=== PATIENT | male | born 1965 | race Caucasian/White ===

== ENCOUNTER 2017-09-15 20:31 | Inpatient (IN) | payer OTHER ==
[2017-09-15] MEDS ORDERED: NS 500 ML IV ONE (20:43)
--- NOTE | 2017-09-15 20:48 | EDPHY ---
H & P Time Seen by Provider: 09/15/17 20:33 HPI/ROS: CHIEF COMPLAINT: Abdominal pain HISTORY OF PRESENT ILLNESS: The patient is a 52-year-old male who presents to the emergency department after having bilateral hernia repair this morning by Dr. Trotter. This was a laparoscopic procedure. Patient states he returned home. He subsequently developed bilateral back pain. This is now moved into his lower abdomen bilaterally. He has had 1 episode of vomiting. No current nausea. His pain is severe. He tried to come to the hospital by private vehicle but collapsed due to the pain. He did not sustain any trauma. He has had no fevers or chills. No previous surgeries. REVIEW OF SYSTEMS: My complete review of systems is negative except as mentioned in the HPI. Past Medical/Surgical History: Past medical history includes epilepsy, back problems Past surgical history: Left shoulder surgery, bilateral hernia repair Social history: The patient does not smoke Smoking Status: Never smoked Physical Exam: Vitals noted GENERAL: Mild acute distress, alert. HEENT: Eyes normal to inspection, normal pharynx, mildly dry mucous membranes. NECK: No thyromegaly, no lymphadenopathy, supple. RESPIRATORY: Clear to auscultation bilaterally, no rales, rhonchi or wheezing. CVS: Regular rate and rhythm, no rubs, murmurs, or gallops. ABDOMEN: Soft, the no significant tenderness to palpation. The patient does have laparoscopic wounds which are clean dry and intact. There is no surrounding erythema. Patient is mildly distended. BACK: Normal to inspection, no CVA tenderness. SKIN: Normal color, no rash, warm, dry. No pallor. EXTREMITIES: No pedal edema, no calf tenderness, no Homans sign or cords, no joint swelling. NEURO/PSYCH: Alert and oriented, normal mood and affect. Constitutional: Initial Vital Signs Temperature (C) 36.6 C 09/15/17 20:35 Heart Rate 101 H 09/15/17 20:35 Respiratory Rate 20 09/15/17 20:35 Blood Pressure 137/82 H 09/15/17 20:35 O2 Sat (%) 92 09/15/17 20:35 O2 Delivery Mode Room Air O2 (L/minute) 2 Allergies/Adverse Reactions: No Known Allergies Allergy (Unverified 09/15/17 20:40) Medical Decision Making - Diagnostics Imaging Results: Imaging Impressions Chest X-Ray 09/15/17 20:43 Impression: Poor respiratory phase without focal pneumonia or pulmonary edema. ADDENDUM: 09/15/172119 Impression: Suspect pneumoperitoneum. Findings and recommendations discussed with Emergency Department physician, DEVYN MACK at 21:19 hour, 09/15/2017. Final report concurs with initial preliminary interpretation. ED Course/Re-evaluation: In the emergency department I met the patient on arrival. An IV was placed. Laboratory studies and chest x-ray were ordered. Patient received fentanyl 150 mcg IV via EMS. He states that did improve his pain. [place] [address]. His chemistry panel is unremarkable. Chest x-ray: Please refer the dictated report. On the lateral view of the chest x-ray the patient appears to have free air under the diaphragm. On recheck the patient describes his pain as 3/10. No respiratory distress. Abdominal exam is unchanged. I discussed the result the patient. I subsequently contacted Dr. Trotter. A CT angiogram of the chest to rule pulmonary embolus as well as CT of the abdomen pelvis were ordered. Patient was given repeat fentanyl [address] chest/abdomen/pelvis: Please refer the dictated report. The patient had multiple abnormal findings. Patient has a right anterior pelvic hematoma that measures 8.8 x 6.8. This is a portion on the bladder. Patient also has fluid/ blood in bilateral hernia locations. There is pneumoperitoneum. There is diffuse air in the abdominal in chest wall. There is pneumomediastinum. There are small bilateral apical pneumothoraces. I discussed the results with the patient. On recheck he had no respiratory distress. I discussed case with Dr. Trotter. Patient will be admitted for observation. Differential Diagnosis: My differential includes but is not limited to small-bowel obstruction, perforation, constipation, free air, postsurgical pain Critical Care Time: The patient required 35 min of critical care time. Patient required frequent rechecks. Patient was noted to have numerous abnormalities on his CT. The patient had bilateral pneumothoraces. However, I do not feel he needs chest tubes at this time. He does have pneumomediastinum as well as pneumoperitoneum. I do not feel he needs acute evaluation of his pelvic hematoma. I discussed these findings with surgery. - Data Points Laboratory Results: Laboratory Results 09/15/17 20:46 09/15/17 20:46 09/15/17 09/15/17 20:46 20:46 WBC 15.11 10^3/uL H 10^3/uL (3.80-9.50) RBC 4.98 10^6/uL 10^6/uL (4.40-6.38) Hgb 14.6 g/dL g/dL (13.7-17.5) Hct 41.9 % % (40.0-51.0) MCV 84.1 fL fL (81.5-99.8) MCH 29.3 pg pg (27.9-34.1) MCHC 34.8 g/dL g/dL (32.4-36.7) RDW 12.3 % % (11.5-15.2) Plt Count 266 10^3/uL 10^3/uL (150-400) MPV 9.7 fL fL (8.7-11.7) Neut % (Auto) 84.4 % H % (39.3-74.2) Lymph % (Auto) 9.3 % L % (15.0-45.0) Barren % (Auto) 5.1 % % (4.5-13.0) Eos % (Auto) 0.1 % L % (0.6-7.6) Baso % (Auto) 0.2 % L % (0.3-1.7) Nucleat RBC Rel Count 0.0 % % (0.0-0.2) Absolute Neuts (auto) 12.76 10^3/uL H 10^3/uL (1.70-6.50) Absolute Lymphs (auto) 1.40 10^3/uL 10^3/uL (1.00-3.00) Absolute Monos (auto) 0.77 10^3/uL 10^3/uL (0.30-0.80) Absolute Eos (auto) 0.01 10^3/uL L 10^3/uL (0.03-0.40) Absolute Basos (auto) 0.03 10^3/uL 10^3/uL (0.02-0.10) Absolute Nucleated RBC 0.00 10^3/uL 10^3/uL (0-0.01) Immature Gran % 0.9 % % (0.0-1.1) Immature Gran # 0.14 10^3/uL H 10^3/uL (0.00-0.10) Sodium 136 mEq/L mEq/L (135-145) Potassium 4.2 mEq/L mEq/L (3.5-5.2) Chloride 101 mEq/L mEq/L (97-110) Carbon Dioxide 22 mEq/l mEq/l (22-31) Anion Gap 13 mEq/L mEq/L (8-16) BUN 23 mg/dL mg/dL (7-23) Creatinine 0.8 mg/dL mg/dL (0.7-1.3) Estimated GFR > 60 Glucose 170 mg/dL H mg/dL (70-100) Calcium 8.9 mg/dL mg/dL (8.5-10.4) Total Bilirubin 1.0 mg/dL mg/dL (0.1-1.4) Conjugated Bilirubin 0.2 mg/dL mg/dL (0.0-0.5) Unconjugated Bilirubin 0.8 mg/dL mg/dL (0.0-1.1) AST 23 IU/L IU/L (17-59) ALT 44 IU/L IU/L (21-72) Alkaline Phosphatase 60 IU/L IU/L (38-126) Total Protein 6.7 g/dL g/dL (6.3-8.2) Albumin 4.5 g/dL g/dL (3.5-5.0) Lipase 58 IU/L IU/L (23-300) Medications Given: Discontinued Medications Fentanyl (Sublimaze) 150 mcg IVP EDNOW ONE Stop: 09/15/17 22:03 Last Admin: 09/15/17 22:03 Dose: 150 mcg Sodium Chloride (Ns) 500 mls @ 0 mls/hr IV EDNOW ONE; Wide Open PRN Reason: Protocol Stop: 09/15/17 20:44 Last Admin: 09/15/17 21:17 Dose: 500 mls Departure - Departure Disposition: [facility] Inpatient Acute Clinical Impression: Pneumomediastinum, Pneumoperitoneum, Bilateral pneumothoraces, Pelvic hematoma in male Abdominal pain Qualifiers: Abdominal location: generalized Qualified Code(s): R10.84 - Generalized abdominal pain Condition: Good Referrals: NONE *PRIMARY CARE P,. [Primary Care Provider] - As per Instructions
[2017-09-15 20:52] LABS: PLATELET COUNT 266 10^3/uL (150-400)
[2017-09-15] MEDS ORDERED: IOPAMIDOL (ISOVUE 370) 100 ML BTL IV ONE (21:26)
[2017-09-15] MEDS ORDERED: fentaNYL 100 MCG/2 ML INJ ONE (22:01)
[2017-09-15] MEDS ORDERED: fentaNYL 100 MCG/2 ML INJ IVP ONE (22:02)
[2017-09-15] MEDS ORDERED: ONDANSETRON 4 MG/2 ML VIAL IVP PRN (22:22)
[2017-09-15] MEDS ORDERED: OXYCODONE/APAP 5/325 TAB PO PRN (22:23)
[2017-09-15] MEDS ORDERED: LR 1,000 ML IV SCH (22:30)
[2017-09-15] MEDS: HYDROmorphone HCL/NS 0.5 MG/ML SYR IVP PRN (23:39)
[2017-09-16] MEDS: HYDROmorphone HCL/NS 0.5 MG/ML SYR IVP PRN ×5 (02:17→19:26)
[2017-09-16] MEDS ORDERED: FLU VACC QS 2017-18 (3YR+)/PF 0.5 ML SYR (FLUARIX QUAD) IM ONE (09:26)
[2017-09-16] MEDS ORDERED: LACTULOSE 20 GM/30 ML UDCUP PO PRN (09:35)
[2017-09-16] MEDS ORDERED: BISACODYL 10 MG SUPP PR PRN (09:35)
[2017-09-16] MEDS ORDERED: MAGNESIUM HYDROXIDE 30 ML UDCUP PO PRN (09:35)
[2017-09-16] MEDS ORDERED: POLYETHYLENE GLYCOL 3350 17 GM PKT PO PRN (09:35)
--- NOTE | 2017-09-16 09:52 | GHP ---
[f rep st] HISTORY AND PHYSICAL DATE OF ADMISSION: 09/15/2017 HISTORY OF PRESENT ILLNESS: This is a 52-year-old male with a history of flank, chest, and abdominal pain. The patient underwent laparoscopic bilateral inguinal hernia repair in a totally extraperiton eal fashion on 09/15/2017. The patient initially did well, however, developed gradual onset of init ially shoulder and back pain. This increased and the patient also began to develop neck pain and abd ominal pain. The patient was directed to the emergency department, where CT scan demonstrated diffus e small amount of pneumoperitoneum, pneumothorax, pneumomediastinum and subcutaneous emphysema. Eleonora ent also had a hematoma in the right groin on CT scan. Currently, patient states his pain has improv ed. Pain is currently worse in his back and lower abdomen. However, his total pain level has improv ed moderately. The patient denies any nausea or vomiting currently. He is tolerating clears without difficulty. PAST MEDICAL HISTORY: Significant for epilepsy. PAST SURGICAL HISTORY: Significant for the above as well as left shoulder surgery. MEDICATIONS: Include Keppra. ALLERGIES: No known drug allergies. SOCIAL HISTORY: Patient is a nonsmoker. PHYSICAL EXAM: VITAL SIGNS: Temperature is 36.4, pulse 72, respirations 18, blood pressure is 124/8 1, saturating 95% on room air. IN GENERAL: He is an alert male in no apparent distress. HEENT: Sc lerae anicteric. There is no evidence of jugular venous distention. There is a small amount of subc utaneous emphysema in the lateral neck bilaterally. No chest wall crepitus is identified. LUNGS: C lear to auscultation. HEART: Regular rate and rhythm. ABDOMEN: Soft and nontender. No definite ma sses are identified. Incisions are with some ecchymosis, but no evidence of infection. EXTREMITIES: Without cyanosis, clubbing, or edema. DIAGNOSTIC DATA: CT scan is as above. Laboratory studies demonstrate a white count of 8.3, hemoglobin 12.1 with hematocrit 35.8, and platel ets of 200. Chemistries are essentially normal. ASSESSMENT/PLAN: A 52-year-old male status post laparoscopic bilateral inguinal hernia repair with d iffuse air consistent with possible barotrauma. The patient also has a hematoma in the right groin. Options have been discussed with the patient's family. At this point, I do not feel the patient wou ld benefit from surgical intervention. We will continue to treat the patient conservatively and plan for ambulation and incentive spirometry. Signs and symptoms of concern were discussed at length wit h the patient's family. Their questions were answered. /[id number]/MODL
[2017-09-16] MEDS: SENNOSIDES/DOCUSATE SODIUM TAB PO SCH ×2 (11:19→20:15)
[2017-09-16] MEDS: levETIRAcetam 500 MG TAB PO SCH ×3 (11:19→20:17)
[2017-09-16] MEDS ORDERED: levETIRAcetam 500 MG TAB PO SCH (16:00)
[2017-09-16] MEDS: traMADol 50 MG TAB PO PRN ×2 (16:56→23:31)
--- NOTE | 2017-09-16 17:02 | ASMTCMCOM ---
CM Note CM Note Notes: Pt admitted for pain s/p surgical hernia repair, lives at home with and works for [employer]. Anticipate will dc home w/support of when medically stable. CM available for any changes. DC Plan: Independent Date Signed: 09/16/2017 05:02 PM Electronically Signed By:Margarita Avila RN
--- NOTE | 2017-09-16 17:56 | PDMN ---
Medical Necessity Medical necessity: Patient meets inpatient criteria per physician note and [facility] (ongoing flank, chest, abd pain s/p bilat inguinal hernia repair 09/15; CT shows R groin hematoma and possible barotrauma: subcu emphysema, sm pneumoperitoneum, pneumothorax, pneumomediastinum. 09/16 CXR shows resolution of air except persistent subu emphysema. LOS will be > 2 midnights for ongoing IV Dilaudid for pain management.)
[2017-09-16] MEDS ORDERED: SENNOSIDES/DOCUSATE SODIUM TAB PO SCH (21:00)
[2017-09-17] MEDS: HYDROmorphone HCL/NS 0.5 MG/ML SYR IVP PRN (02:36)
[2017-09-17] MEDS: traMADol 50 MG TAB PO PRN (07:09)
[2017-09-17 07:12] VITALS: BP 119/75
[2017-09-17] MEDS ORDERED: IBUPROFEN 600 MG TAB PO PRN (09:05)
--- NOTE | 2017-09-17 09:05 | SOAPPROG ---
SOAP Progress Note Assessment/Plan: Assessment: Improving; pain control an issue last PM but improved today. Plan d/c today if cont to improve. Discussed restrictions, signs/symptoms of concern. Plan: 09/17/17 09:03 09/17/17 09:03 Subjective: Patient feels better, pain now controlled on po tramadol. No N/V. Eli po, + BM. Ambulating, voiding. Objective: Vital Signs Temp Pulse Resp BP Pulse Ox 36.4 C 88 18 119/75 94 09/17/17 07:07 09/17/17 07:07 09/17/17 07:07 09/17/17 07:07 09/17/17 07:07 Laboratory Results 09/17/17 04:47 09/17/17 04:47 09/16/17 09/17/17 09/18/17 05:59 05:59 05:59 Intake Total 375 0 Output Total 500 Balance -125 0 Alert, NAD RRR Abd soft, [employer] with minimal ecchymosis, no erythema. ICD10 Worksheet Patient Problems: Problems Problem Status Onset Abdominal pain Acute Bilateral pneumothoraces Acute Pelvic hematoma in male Acute Pneumomediastinum Acute Pneumoperitoneum Acute
[2017-09-17] MEDS: levETIRAcetam 500 MG TAB PO SCH (09:30)
[2017-09-17] MEDS: SENNOSIDES/DOCUSATE SODIUM TAB PO SCH (09:35)
--- NOTE | 2017-09-17 10:52 | ASMTCMCOM ---
CM Note CM Note Notes: Pt. d/cing today independently. Date Signed: 09/17/2017 10:51 AM Electronically Signed By:Thuy Rose LCSW
--- NOTE | 2017-10-14 11:18 | GDS ---
[f rep st] DISCHARGE SUMMARY ADMISSION DIAGNOSES: Pneumothorax/pneumomediastinum. INDICATIONS FOR ADMISSION: This is a 52-year-old male who is status post laparoscopic totally extraperitoneal bilateral inguinal hernia repair 2017. Subsequent to the operation. Patient developed flank, chest and shoulder pain. The patient was admitted through the emergency department where a CT scan demonstrated diffuse pneumomediastinum, pneumothorax and subcutaneous emphysema. Please see history and physical for details of admission. HOSPITAL COURSE: Patient was admitted and observed. Patient gradually improved. The patient's pain improved to the point where he tolerated oral pain medications well. No other abnormalities were identified. The patient was discharged home on 09/17/2017. He was given extensive instructions regarding his diet and exercise advancement. Signs and symptoms of concern have been discussed. He will follow up in 1 week. /[id number]/MODL MTDD
== END 2017-09-17 09:51 | disposition home or self-care (01) | DRG 921 ==
LOC: EDUNIT# → INTOOBSV 22:21 → OBSVTOIN 22:21 → UNDOADMOB 22:21 → F3E 23:16 → OBSVTOIN 09-16 17:45 → UNDODISIN 09-17 09:51
PROVIDERS: ADMIT Surgery; ATTEND Surgery
DX: L76.32 Postprocedural hematoma of skin and subcutaneous tissue following other procedure (principal); T70.29XA Other effects of high altitude, initial encounter; T81.82XA Emphysema (subcutaneous) resulting from a procedure, initial encounter; K66.8 Other specified disorders of peritoneum; G40.909 Epilepsy, unspecified, not intractable, without status epilepticus; Z23 Encounter for immunization
CPT/HCPCS: 96374; G0008; G0378; J0690; J1170; J2405; J3010; Q9967